=== PATIENT | female | born 1960 | race Caucasian/White ===

== ENCOUNTER 2017-07-21 12:34 | Emergency (ER) | payer OTHER ==
[~2017-07-21] VITALS: Ht 165.1 cm; Wt 87.0 kg
[~2017-07-21 12:34] MED LIST: AMLO1CAP71 PO; IBUP-1542 PO; LEVO500T72 PO; PROM6.25 PO
[2017-07-21 12:40] VITALS: Ht 165.1 cm; Wt 87.0 kg
--- NOTE | 2017-07-21 13:00 | ERD ---
ER Documentation Chief Complaint Date/Time DATE: 07/21/17 TIME: 12:56 Chief Complaint left forearm/elbow pain due a fall at the park, bilat knee abrasions,0 head HPI 57-year-old female who is right-hand dominant states that she was walking at the park and actually tripped and fell on her left forearm and elbow. She complains of diffuse posterior left forearm pain, better with flexion and worse with extension. She denies any head injury loss of consciousness or preceding factors that include syncope, dizziness or chest pain. She also fell onto her bilateral knees causing abrasions. ROS All systems reviewed and are negative except as per history of present illness. Medications Home Meds Active Scripts Ibuprofen* (Motrin*) 600 Mg Tab, 600 MG PO Q6, #30 TAB Prov:VICK EATON PA-C 07/21/17 Hydrocodone/Acetaminophen ([place] 5-325 Tablet) 1 Each Tablet, 1 TAB PO Q6H Y for PAIN, #20 TAB Prov:VICK EATON PA-C 07/21/17 Ibuprofen* (Motrin*) 600 Mg Tab, 600 MG PO Q6, #14 TAB Prov:WELLINGTON CAZARES MD 02/28/16 Promethazine w/Codeine* (Phenergan w/Codeine* Syrup) 5 Ml Syrup, 5 ML PO Q4H Y for COUGH for 5 Days, ML 6 ounces Prov:WELLINGTON CAZARES MD 02/28/16 Levofloxacin* (Levaquin*) 500 Mg Tablet, 500 MG PO DAILY for 7 Days, TAB Prov:WELLINGTON CAZARES MD 02/28/16 Reported Medications Amlodipine Besylate/Benazepril (Lotrel 5-20 Mg Capsule) 1 Cap Capsule, 1 CAP PO DAILY 05/30/11 Allergies Allergies: Coded Allergies: No Known Allergy (Verified Allergy, 06/01/11) PMhx/Soc History of Surgery: Yes (HYSTERECTOMY) Anesthesia Reaction: No Hx Neurological Disorder: No Hx Respiratory Disorders: No Hx Cardiac Disorders: Yes (HTN) Hx Psychiatric Problems: No Hx Alcohol Use: No Hx Substance Use: No Hx Tobacco Use: No Physical Exam Vitals Vital Signs Date Time Temp Pulse Resp B/P Pulse Ox O2 Delivery O2 Flow Rate FiO2 07/21/17 12:40 98.6 88 18 178/83 98 Physical Exam General: Well-developed, well-nourished. The patient appears in no acute distress. HEENT: Head is normocephalic, atraumatic. No scleral icterus. Neck: Supple. Nontender. Lungs: Clear to auscultation. Normal air movement. Heart: Regular rate and rhythm. S1 and S2 are normal. No murmurs, gallops, or rubs. Abdomen: Nondistended. Extremities: limited ROM with extension, diffuse swelling, patient able to make a fist. Compartments are soft neurologic: Alert and oriented 3. No focal deficits. Normal speech and gait. Skin: Normal turgor. No rash or lesions. Results 24 hrs Radiology Main Line: [phone] DIAGNOSTIC IMAGING REPORT Patient: JANE ORTIZ : 1960 Age: 57 Sex: F MR #: [id number] DOS: 07/21/17 1255 Ordering MD: VICK ETAON PA-C Location: [facility] Room/Bed: PROCEDURE: XR Left Elbow. CLINICAL INDICATION: Trauma, pain TECHNIQUE: AP, lateral and oblique views of the left elbow performed. COMPARISON: None. FINDINGS: There is elevation of the anterior and posterior fat pads consistent with hemarthrosis. There is appearance of less than 1 mm step-off of the radial aspect of the cortex of the radial head suggestive of a nondisplaced fracture. No dislocation is seen. IMPRESSION: There is elevation of the anterior and posterior fat pads consistent with hemarthrosis. There is appearance of less than 1 mm step-off of the radial aspect of the cortex of the radial head suggestive of a nondisplaced fracture. RPTAT: HJES .Da Jones MD, MD Date Time Electronically viewed and signed by .Da Jones MD, on 07/21/2017 14:49 .S/ CC: VICK EATON PA-C Procedures/MDM ER course: Patient received [place] as well as Zofran Left upper extremity was placed in a posterior long-arm splint. She is placed in a sling for comfort. Splint Assessment: Neurovascularly intact post splint placement with good fit. Medical decision makin57 year old female Comes in status post trip and fall with left elbow pain, Presents with possible nondisplaced radial head fracture, and has a posterior and anterior fat pad. She was placed in a posterior long- arm splint, and was advised to follow-up with orthopedics for the elbow fracture. Patient was given a copy of all results, as well as ibuprofen and [place]. Patient's blood pressure was elevated (>120/80) but appears stable without evidence of hypertension emergency or urgency. The patient was counseled about the risks of hypertension and urged to pursue outpatient monitoring and therapy within a week with their primary care physician. Departure Diagnosis: Primary Impression: Injury of left elbow Condition: VICK Meyers PA-C Jul 21, 2017 13:00
--- NOTE | 2017-07-21 14:50 | RADRPT ---
PROCEDURE: XR Left Elbow. CLINICAL INDICATION: Trauma, pain TECHNIQUE: AP, lateral and oblique views of the left elbow performed. COMPARISON: None. FINDINGS: There is elevation of the anterior and posterior fat pads consistent with hemarthrosis. There is morgan earance of less than 1 mm step-off of the radial aspect of the cortex of the radial head suggestive of a nondisplaced fracture. No dislocation is seen. IMPRESSION: There is elevation of the anterior and posterior fat pads consistent with hemarthrosis. There is morgan earance of less than 1 mm step-off of the radial aspect of the cortex of the radial head suggestive of a nondisplaced fracture. RPTAT: HJES .Da Jones MD, MD Date Time Electronically viewed and signed by .Da Jones MD, on 07/21/2017 14:49 .S/
[2017-07-21] MEDS ORDERED: HYDR-906 PO (14:56)
[2017-07-21] MEDS ORDERED: IBUP-1542 PO (14:56)
[2017-07-21] MEDS ORDERED: ONDANSETRON (ODT) 4 MG TAB ODT STA (15:12)
[2017-07-21] MEDS ORDERED: HYDROCODONE/APAP (10/325) TAB PO ONE (15:30)
== END 2017-07-21 16:08 | disposition home or self-care (01) ==
LOC: FTE 12:34
DX: S80.212A Abrasion, left knee, initial encounter (principal); S80.211A Abrasion, right knee, initial encounter; I10 Essential (primary) hypertension; W01.0XXA Fall on same level from slipping, tripping and stumbling without subsequent striking against object, initial encounter; Y92.830 Public park as the place of occurrence of the external cause
CPT/HCPCS: 29105; 73080; Z7502; Z7610